=== PATIENT | male | born 1965 | race Two or more races ===

== ENCOUNTER 2018-02-12 23:24 | Inpatient (IN) | payer OTHER ==
[~2018-02-12] VITALS: Ht 172.7 cm; Wt 65.5 kg
[2018-02-13] MEDS ORDERED: SODIUM CHLORIDE 0.9% 1,000ML IVBOLUS ONE
[2018-02-13] MEDS ORDERED: SODIUM CHLORIDE FLUSH 10ML SYR IVF ONE
[2018-02-13 00:08] LABS: BASOPHILS # (AUTO) 0.02 x10^3/uL (0-0.1); BASOPHILS % (AUTO) 0 % (0-1); EOSINOPHILS # (AUTO) 0.37 x10^3/uL (0-0.4); EOSINOPHILS % (AUTO) 4 % (1-7); LYMPHOCYTES # (AUTO) 1.23 x10^3/uL (1-3.4); LYMPHOCYTES % (AUTO) 13 % (22-44); MD NO; MEAN CORPUSCULAR VOLUME 91.1 fL (81-97); MEAN PLATELET VOLUME 9.7 fL (7.4-10.4); MONOCYTES # (AUTO) 0.57 x10^3/uL (0.2-0.8); MONOCYTES % (AUTO) 6 % (2-9); NEUTROPHILS # (AUTO) 7.06 x10^3/uL (1.8-6.8); NEUTROPHILS % (AUTO) 76 % (42-75); PLATELET COUNT 169 x10^3/uL (130-400); RED BLOOD COUNT 4.74 x10^6/uL (4.38-5.82); RED CELL DISTRIBUTION WIDTH 13.7 % (9.4-14.8)
[2018-02-13 00:40] LABS: ALANINE AMINOTRANSFERASE 18 U/L (12-78); ALBUMIN 3.5 g/dL (3.4-5.0); ANION GAP 6 mmol/L (5-15); CALCIUM 8.4 mg/dL (8.5-10.1); CHLORIDE 112 mmol/L (98-107)
[2018-02-13 00:44] LABS: ALKALINE PHOSPHATASE 91 U/L (45-117); BILIRUBIN,TOTAL 0.2 mg/dL (0.2-1.0); TOTAL PROTEIN 6.5 g/dL (6.4-8.2); TROPONIN I < 0.015 ng/mL (0.000-0.045)
[2018-02-13 00:46] LABS: INTERNATIONAL NORMALIZED RATIO 1.01 (0.93-1.1); PROTHROMBIN TIME 10.5 Seconds (9.6-11.5)
[2018-02-13] MEDS ORDERED: POTASSIUM CHLORIDE 20 MEQ, MAGNESIUM SULFATE 2 GM, THIAMINE 100 MG, MVI ADULT 10 ML, FO... IV SCH (01:31)
[2018-02-13] MEDS ORDERED: NICOTINE 14MG/24 HR PATCH.TD24 TD SCH (02:00)
[2018-02-13] MEDS ORDERED: DOCUSATE 100 MG CAPSULE PO PRN (02:00)
[2018-02-13] MEDS ORDERED: ONDANSETRON 2MG/ML, 2ML IVPush PRN (02:00)
[2018-02-13] MEDS ORDERED: LABETALOL 5MG/ML, 20ML IVPush PRN (02:00)
[2018-02-13] MEDS ORDERED: ACETAMINOPHEN 325 MG TABLET PO PRN (02:00)
[2018-02-13] MEDS ORDERED: LORazepam 2 MG/ML, 1ML IVPush PRN (02:00)
[2018-02-13] MEDS ORDERED: TRAZODONE 50MG TABLET PO PRN (02:00)
[2018-02-13] MEDS ORDERED: ONDANSETRON ODT 4 MG PO PRN (02:00)
[2018-02-13 02:26] VITALS: BP 144/75
[2018-02-13 03:55] VITALS: BP 144/79
[2018-02-13 04:31] LABS: MICROSCOPIC NOT IND
[2018-02-13 04:34] LABS: CULTURE INDICATED? NO
[2018-02-13 08:39] VITALS: BP 136/77
[2018-02-13] MEDS ORDERED: FAMOTIDINE 20 MG TABLET PO SCH (09:00)
[2018-02-13 12:56] VITALS: BP 141/87
[2018-02-13 19:12] VITALS: BP 153/86
== END 2018-02-14 02:35 | disposition home or self-care (01) | DRG 897 ==
LOC: ED 23:59 → EDIP 02-13 01:14 → 4EST 02-13 02:20
PROVIDERS: ADMIT Internal Medicine; ATTEND Internal Medicine
DX: F10.239 Alcohol dependence with withdrawal, unspecified (principal); S00.03XA Contusion of scalp, initial encounter; F17.210 Nicotine dependence, cigarettes, uncomplicated; X58.XXXA Exposure to other specified factors, initial encounter; Y93.89 Activity, other specified; Y92.89 Other specified places as the place of occurrence of the external cause; Y99.8 Other external cause status
CPT/HCPCS: 36415; 70450; 71045; 80053; 80307; 81003; 84484; 85025; 85610; 85730; 93005; 96360; 99285; J3411; J3475; J3480; J7042; J7030

== ENCOUNTER 2021-04-26 13:36 | Emergency (ER) | payer OTHER ==
[~2021-04-26] VITALS: Ht 167.6 cm; Wt 61.6 kg
[2021-04-26 13:50] VITALS: BP 156/96
--- NOTE | 2021-04-26 13:55 | NUR ---
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 WHEN EMS ARRIVED PT A&0 X 1 GCS 14. PT NOW PRESENT ALERT, MAHAN. PT CZE[place] SPEAKING ONLY. DR AMOS AT BEDSIDE, (CZECH SPEAKING) PT DENIES ANY SZ HX AND HAS NO COMPLAINTS AT THIS TIME. ALL MONITORS PLACED, VSS. SBAR RPT TO IRWIN WILLETT
[2021-04-26] MEDS ORDERED: SODIUM CHLORIDE FLUSH 10ML SYR IVF ONE (14:00)
--- NOTE | 2021-04-26 14:11 | NUR ---
PATIENT TO CT.
--- NOTE | 2021-04-26 14:30 | NUR ---
PATIENT BACK FROM CT.
--- NOTE | 2021-04-26 14:45 | NUR ---
LAB AT BEDSIDE, PATIENT REPORTING WANTING TO GO HOME. USED AUTHOR, PATIENT STATING HE WANTS TO GO BACK TO WORK AND THAT HE WILL SIGN AN AMA FORM. PATIENT VERBALIZED UNDERSTANDING TO COME BACK TO ED FOR ANY ISSUES OR CONCERNS. Addendum: 04/26/21 at 1507 by KLEZeeshan NOTIFIED.
[2021-04-26 15:04] LABS: BASOPHILS % (AUTO) 1 % (0-1); EOSINOPHILS % (AUTO) 0 % (1-7); LYMPHOCYTES % (AUTO) 5 % (22-44); MEAN CORPUSCULAR HEMOGLOBIN 31.6 pg (27.5-34.5); MEAN CORPUSCULAR HGB CONC 33.6 g/dL (33.2-36.2); MEAN PLATELET VOLUME 9.5 fL (7.4-10.4); MONOCYTES % (AUTO) 6 % (2-9); NEUTROPHILS % (AUTO) 88 % (42-75); PLATELET COUNT 168 x10^3/uL (130-400); RED BLOOD COUNT 4.96 x10^6/uL (4.38-5.82); RED CELL DISTRIBUTION WIDTH 13.7 % (9.4-14.8)
--- NOTE | 2021-04-26 15:07 | NUR ---
PATIENT PROVIDED SCRIPT FOR [place] AND INFORMATION IN [place] AND [place] ON SEIZURES. PATIENT SIGNED AMA FORM.
[2021-04-26 15:10] LABS: ALANINE AMINOTRANSFERASE 31 U/L (12-78); ALBUMIN 3.9 g/dL (3.4-5.0); ANION GAP 6 mmol/L (5-15); CALCIUM 8.3 mg/dL (8.5-10.1); CHLORIDE 107 mmol/L (98-107); CREATININE 0.96 mg/dL (0.7-1.3)
[2021-04-26 15:15] LABS: ALKALINE PHOSPHATASE 90 U/L (45-117); BILIRUBIN,TOTAL 0.5 mg/dL (0.2-1.0); TOTAL PROTEIN 8.1 g/dL (6.4-8.2); TROPONIN I < 0.015 ng/mL (0.000-0.045)
--- NOTE | 2021-04-26 15:30 | NUR ---
PATIENT FOUND IN HALLWAY WITH PANTS ON, ONLY HALF HIS SHIRT, PATIENT IS INSPECTING DOOR AND ATTEMPTING TO CLOSE IT WITH DIFFICULTY, PATIENT WAS AMBULATING WITH STEADY GAIT, PATIENT ESCORTED INTO ROOM, PATIENT OFFERED SHOES, PATIENT PLACED THEM AGAINST THE WALL, ASKED PATIENT "HOW CAN I HELP YOU" IN KITTITIAN WITH ZIG ZAG STITCHER, PATIENT DIDNT RESPOND. PATIENT WALKED MORE INTO ROOM AND INSPECTED ALL THE CORDS. ATTEMPTED TO RE-ORIENT PATIENT. PATIENT FLAT AFFECTED AND NOT RESPONDING TO VERBAL STIMULI, PATIENT IS STANDING AND EYES ARE OPEN. ATTEMPTED TO REMOVE EKG CORD FROM HAND BUT PATIENT WAS GRIPPING ON IT TIGHTLY. WAS ABLE TO GET IT OUT OF HAND. ATTEMPTED TO REDIRECT PATIENT TO BED. PATIENT NOT RESPONDING TO REQUESTS IN ARABIC OR KITTITIAN. PATIENT TURNED AND HELPED INTO BED. SEVERAL ATTEMPTS TO HAVE PATIENT PUT FEET IN BED. PATIENT ABLE TO ANSWER PERSON, YEAR, AND CITY. PATIENT DOES NOT ANSWER TO EVENT OR HOW HE GOT TO THE HOSPITAL. MD NOTIFIED. PATIENT EVALUATED BY MD WITH ZIG ZAG STITCHER AT BEDSIDE. PATIENT TELLING ZIG ZAG STITCHER THAT HE FEELS CONFUSED. PATIENT DECIDED TO STAY. PATIENT ATTEMPTING TO GIVE URINE SAMPLE, PATIENT GOING TO CALL FRIEND FOR RIDE.
--- NOTE | 2021-04-26 15:49 | NUR ---
SISITER CAME TO BE PATIENTS RIDE, SITTER WENT OUTSIDE FOR A LITTLE WHILE.
[2021-04-26] MEDS ORDERED: LEVETIRACETAM 500 MG TABLET ONE (16:22)
[2021-04-26] MEDS ORDERED: LEVETIRACETAM 500 MG TABLET PO ONE (16:30)
--- NOTE | 2021-04-26 17:02 | NUR ---
PATIENT WANTED TO LEAVE BEFORE UDS, PATIENT SENT HOME WITH SHAI. PATIENT NOW BACK TO BASELINE
[2021-04-26 17:10] LABS: AMPHETAMINE SCREEN, URINE Negative (Negative); BARBITURATE SCREEN, URINE Negative (Negative); BENZODIAZEPINE SCREEN, URINE Negative (Negative); CANNABINOID SCREEN, URINE Negative (Negative); COCAINE SCREEN, URINE Negative (Negative); METHADONE SCREEN, URINE Negative (Negative); OPIATE SCREEN, URINE Negative (Negative)
== END 2021-04-26 17:04 | disposition home or self-care (01) ==
LOC: ED 15:19
DX: R56.9 Unspecified convulsions (principal); I10 Essential (primary) hypertension
CPT/HCPCS: 36415; 70450; 80053; 80307; 80320; 83735; 84484; 85025; 93005; 99285; G0480